=== PATIENT | male | born 1970 | race Asian ===

== ENCOUNTER 2022-12-16 11:31 | Emergency (ER) | payer OTHER ==
[~2022-12-16] VITALS: Ht 175.3 cm; Wt 81.6 kg
[2022-12-16 11:40] VITALS: BP 135/85; TEMP 98.7
[2022-12-16 12:31] LABS: PLATELET COUNT 344 K/uL (142-355)
[2022-12-16 12:40] LABS: POTASSIUM 3.9 mmol/L (3.6-5.2)
== END 2022-12-16 16:00 | disposition home or self-care (01) ==
LOC: ED 11:31
PROVIDERS: Emergency Medicine
DX: K52.89 Other specified noninfective gastroenteritis and colitis (principal)
CPT/HCPCS: 36415; 80053; 81002; 85027; 96361; 96374; 99284; J2405